=== PATIENT | female | born 1995 | race Caucasian/White ===

== ENCOUNTER → 2017-01-15 | Outpatient (CLI) | payer BC ==
[~2017-01-15] MED LIST: ALBUTEROL SULF8.5 GM IH; CARAFATE100 MG/ML PO; CORTIZONE-1028 GM TP; ELAVIL10 MG PO; METOCLOPRAMIDE H5 MG PO; ONDANSETRON HCL4 MG PO; OXYCODONE HCL5 MG PO; PHENERGAN25 MG PR; REGLAN10 MG PO; SENNA-TIME S T1 EACH PO; ZOFRAN4 MG PO
== END | disposition home or self-care (01) ==
LOC: NUC 07:30
DX: R11.2 Nausea with vomiting, unspecified (principal)
CPT/HCPCS: 78264; A9541

== ENCOUNTER 2017-09-21 10:02 | Emergency (ER) | payer OTHER, BC ==
[~2017-09-21] VITALS: Ht 162.6 cm; Wt 58.8 kg
[2017-09-21 11:46] LABS: HEMATOCRIT 40.2 % (36.0-46.0); MCH 30.5 PG (29.0-34.0); MCHC 35.1 G/DL (30.0-36.0); MEAN PLAT.VOLUME 9.5 uM^3 (9.5-12.4); PLATELET COUNT 290 K/uL (156-360); RBC DIS.WIDTH-CV 12.2 % (11.8-14.6); RBC DIS.WIDTH-SD 38.7 % (39-53); RED BLOOD COUNT 4.62 M/uL (3.80-5.20); WHITE BLOOD COUNT 8.3 K/uL (4.1-10.2)
[2017-09-21 11:54] LABS: CHLORIDE 105 mEq/L (99-109); POTASSIUM 4.1 mEq/L (3.7-5.4); SODIUM 140 mEq/L (136-147)
[2017-09-21 11:57] LABS: GLUCOSE 91 mg/dL (70-99)
[2017-09-21 11:58] LABS: ANION GAP 10 MEQ/L (2-14); TOTAL BILIRUBIN 1.1 mg/dL (0.0-1.0)
[2017-09-21 12:00] LABS: ALKALINE PHOSPHATASE 57 IU/L (3-129); GFR ESTIMATE (CALCULATED) > 59 mL/min/
[2017-09-21 12:01] LABS: UREA NITROGEN (BUN) 13 mg/dL (9-23)
[2017-09-21 12:04] LABS: LIPASE 8 U/L (1.0-51.0)
[2017-09-21 12:10] LABS: ADD MIUA? NO; BILIRUBIN NEGATIVE; BLOOD NEGATIVE; COLOR YELLOW ((YELLOW)); GLUCOSE (STRIP) NEGATIVE; KETONES NEGATIVE; LEUKOCYTES NEGATIVE; NITRITE NEGATIVE; PROTEIN (STRIP) NEGATIVE; SPECIFIC GRAVITY 1.012 (1.000-1.030); UCUL ADDED? NO
[2017-09-21 12:13] LABS: QUANTITATIVE HCG < 4.0 MIU/ML
[2017-09-21 14:35] LABS: C-REACTIVE PROTEIN 3.2 MG/L (0-10); SAMPLE HEMOLYSIS CHECK 0; SAMPLE ICTERIC CHECK 0; SAMPLE LIPEMIA CHECK 0
[2017-09-21] MEDS ORDERED: MIRALAX17 GM PO (17:04)
[2017-09-21] MEDS ORDERED: WESTCORT 0.2% C15 GM TP (17:20)
[2017-09-21 17:36] VITALS: BP 107/57
== END 2017-09-21 17:38 | disposition home or self-care (01) ==
LOC: EME 10:02
DX: K59.00 Constipation, unspecified (principal); R10.30 Lower abdominal pain, unspecified; K21.9 Gastro-esophageal reflux disease without esophagitis; Z97.5 Presence of (intrauterine) contraceptive device; Z90.49 Acquired absence of other specified parts of digestive tract
CPT/HCPCS: 74176; 76856; 80053; 81003; 83690; 84702; 85027; 86140; 99281; 99283

== ENCOUNTER 2017-12-14 10:27 | Inpatient (IN) | payer OTHER, BC ==
[~2017-12-14] VITALS: Ht 162.6 cm; Wt 56.7 kg
[~2017-12-14 10:27] MED LIST changes: +MIRALAX17 GM PO; +WESTCORT 0.2% C15 GM TP
[2017-12-14 11:22] LABS: APPEARANCE SL.HAZY ((CLEAR)); BILIRUBIN NEGATIVE; BLOOD SMALL; COLOR YELLOW ((YELLOW)); GLUCOSE (STRIP) NEGATIVE; KETONES 20; LEUKOCYTES TRACE; NITRITE NEGATIVE; PROTEIN (STRIP) NEGATIVE; SPECIFIC GRAVITY 1.024 (1.000-1.030); UROBILINOGEN 0.2 MG/DL (0.2-1.0)
[2017-12-14 11:28] LABS: HEMATOCRIT 43.3 % (36.0-46.0); HEMOGLOBIN 15.3 G/DL (11.9-15.5); MCH 30.5 PG (29.0-34.0); MCHC 35.3 G/DL (30.0-36.0); MCV 86.4 FL (83-99); PLATELET COUNT 234 K/uL (156-360); RBC DIS.WIDTH-CV 12.3 % (11.8-14.6); RBC DIS.WIDTH-SD 38.7 % (39-53); RED BLOOD COUNT 5.01 M/uL (3.80-5.20); WHITE BLOOD COUNT 8.7 K/uL (4.1-10.2)
[2017-12-14 11:34] LABS: BACTERIA NONE SEEN /HPF; EPITHELIAL CELLS 1+ /HPF; MUCUS TRACE /LPF; UCUL ADDED? NO; WHITE BLOOD CELLS 0-5 /HPF (0-5)
[2017-12-14 11:40] LABS: ALBUMIN 4.8 g/dL (3.2-4.8); CHLORIDE 106 mEq/L (99-109); SODIUM 138 mEq/L (136-147)
[2017-12-14 11:42] LABS: GLUCOSE 105 mg/dL (70-99); TOTAL PROTEIN 7.2 g/dL (6.4-8.3)
[2017-12-14 11:44] LABS: TOTAL BILIRUBIN 1.1 mg/dL (0.0-1.0)
[2017-12-14 11:46] LABS: ALKALINE PHOSPHATASE 56 IU/L (3-129); CREATININE 0.6 mg/dL (0.6-1.3); GFR ESTIMATE (CALCULATED) > 59 mL/min/
[2017-12-14 11:47] LABS: UREA NITROGEN (BUN) 11 mg/dL (9-23)
[2017-12-14 11:48] LABS: AST (GOT) 16 IU/L (2-34)
[2017-12-14 11:49] LABS: ALT (GPT) 14 IU/L (3-49)
[2017-12-14 11:59] LABS: QUANTITATIVE HCG < 4.0 MIU/ML
[2017-12-14 12:09] LABS: LIPASE 3828 U/L (1.0-51.0)
[2017-12-14] MEDS ORDERED: AMITIZA24 MICROGR PO (16:06)
[2017-12-14] MEDS ORDERED: DICYCLOMINE HCL10 MG PO (16:07)
[2017-12-14] MEDS ORDERED: TRAMADOL HCL50 MG PO (16:08)
[2017-12-14] MEDS ORDERED: METOCLOPRAMIDE10 MG PO (16:09)
[2017-12-14] MEDS ORDERED: PANTOPRAZOLE SO40 MG PO (16:10)
[2017-12-14] MEDS ORDERED: RANITIDINE HCL150 MG PO (16:12)
[2017-12-14] MEDS ORDERED: GUMMI BEAR MUL1 EACH PO (16:14)
[2017-12-14] MEDS ORDERED: PROBIOTIC1 EAC1 PO (16:17)
[2017-12-14 17:50] VITALS: BP 110/64
[2017-12-14 19:36] VITALS: BP 98/53
[2017-12-14 23:18] VITALS: BP 107/53
[2017-12-15 05:45] LABS: HEMATOCRIT 35.4 % (36.0-46.0); MCH 30.7 PG (29.0-34.0); MCV 87.6 FL (83-99); PLATELET COUNT 183 K/uL (156-360); RBC DIS.WIDTH-CV 12.2 % (11.8-14.6); RBC DIS.WIDTH-SD 39.3 % (39-53); RED BLOOD COUNT 4.04 M/uL (3.80-5.20); WHITE BLOOD COUNT 4.5 K/uL (4.1-10.2)
[2017-12-15 05:46] LABS: HEMOGLOBIN 12.4 G/DL (11.9-15.5)
[2017-12-15 06:11] LABS: CHLORIDE 109 MEQ/L (99-109); CREATININE 0.5 MG/DL (0.6-1.3); GFR ESTIMATE (CALCULATED) > 59 mL/min/; GLUCOSE 103 mg/dL (70-99); POTASSIUM 4.3 MEQ/L (3.7-5.4); SODIUM 139 MEQ/L (136-147); UREA NITROGEN (BUN) 7 mg/dL (9-23)
[2017-12-15 07:30] VITALS: BP 93/50
[2017-12-15 10:20] VITALS: BP 120/58
[2017-12-15 10:24] LABS: LIPASE 543 U/L (1.0-51.0)
[2017-12-15 11:29] VITALS: BP 124/64
[2017-12-15 15:14] VITALS: BP 120/69
[2017-12-15 19:29] VITALS: BP 101/56
[2017-12-15 23:06] VITALS: BP 108/52
[2017-12-16 03:37] VITALS: BP 101/50
[2017-12-16 07:33] VITALS: BP 111/68
[2017-12-16 09:02] LABS: ALBUMIN 3.9 G/DL (3.2-4.8); ALKALINE PHOSPHATASE 36 IU/L (3-129); ALT (GPT) 11 IU/L (3-49); AST (GOT) 14 IU/L (2-34); CHLORIDE 107 MEQ/L (99-109); CREATININE 0.6 MG/DL (0.6-1.3); GFR ESTIMATE (CALCULATED) > 59 mL/min/; GLUCOSE 92 mg/dL (70-99); POTASSIUM 3.3 MEQ/L (3.7-5.4); SODIUM 140 MEQ/L (136-147); TOTAL PROTEIN 5.2 G/DL (6.4-8.3); UREA NITROGEN (BUN) 5 mg/dL (9-23)
[2017-12-16 10:26] LABS: LIPASE 55 U/L (1.0-51.0); MAGNESIUM 1.6 mg/dl (1.3-2.7)
[2017-12-16 11:35] VITALS: BP 126/60
[2017-12-16 15:41] VITALS: BP 121/66
[2017-12-16 19:25] VITALS: BP 118/74
[2017-12-16 23:22] VITALS: BP 100/52
[2017-12-17 05:17] VITALS: BP 97/55
[2017-12-17 07:11] VITALS: BP 128/64
[2017-12-17 08:46] LABS: HEMATOCRIT 35.3 % (36.0-46.0); HEMOGLOBIN 12.3 G/DL (11.9-15.5); MCH 30.6 PG (29.0-34.0); MCHC 34.8 G/DL (30.0-36.0); MCV 87.8 FL (83-99); PLATELET COUNT 175 K/uL (156-360); RBC DIS.WIDTH-CV 12.1 % (11.8-14.6); RBC DIS.WIDTH-SD 39.4 % (39-53); RED BLOOD COUNT 4.02 M/uL (3.80-5.20)
[2017-12-17 09:15] LABS: CHLORIDE 107 MEQ/L (99-109); CREATININE 0.5 MG/DL (0.6-1.3); GFR ESTIMATE (CALCULATED) > 59 mL/min/; GLUCOSE 80 mg/dL (70-99); POTASSIUM 3.5 MEQ/L (3.7-5.4); SODIUM 140 MEQ/L (136-147); UREA NITROGEN (BUN) 4 mg/dL (9-23)
[2017-12-17 10:15] VITALS: BP 110/62
[2017-12-17] MEDS ORDERED: OXYCODONE HCL5 MG PO (10:19)
[2017-12-17 11:29] VITALS: BP 1115/79
== END 2017-12-17 12:41 | disposition home or self-care (01) | DRG 440 ==
LOC: EME 10:27 → 3EAST 14:54 → EDOF 14:54 → ENRESERV 14:56 → 3EAST 17:56
PROVIDERS: Internal Medicine; Physician Assistant
DX: K85.90 Acute pancreatitis without necrosis or infection, unspecified (principal); E87.6 Hypokalemia; K21.9 Gastro-esophageal reflux disease without esophagitis; G43.909 Migraine, unspecified, not intractable, without status migrainosus; Z86.018 Personal history of other benign neoplasm; Z90.411 Acquired partial absence of pancreas; Z90.49 Acquired absence of other specified parts of digestive tract
CPT/HCPCS: 80048; 80053; 81003; 83690; 83735; 84702; 85027; 99281; 99285; C9113; J1170; J1650; J2270; J2405; J2550; J3010; J3475; J7030; J7042